=== PATIENT | male | born 1990 | race Caucasian/White ===

== ENCOUNTER 2018-07-07 09:00 | Emergency (ER) | payer OTHER, MEDICAID ==
--- NOTE | 2018-07-07 09:36 | EDPHY ---
General Time Seen by Provider: 07/07/18 09:32 Narrative: CLINICAL IMPRESSION: Autism, schizophrenia ASSESSMENT/PLAN: Patient is a 27-year-old male with a significant history of autism and schizophrenia who presents with increased anger and self-harm. Patient was placed on a mental incapacity hold secondary to being gravely disabled. Patient is afebrile and nontoxic-appearing, he is in no acute distress. CBC revealed no evidence of leukocytosis or anemia. Vital signs were reviewed and no findings to suggest bacterial illness. Metabolic panel with no metabolic abnormalities or acute kidney injury. Alcohol negative. Drug screen positive for cannabinoid and benzodiazepine. There were no clinical findings to suggest significant bodily harm, skull fracture, intracranial hemorrhage, cellulitis, intoxication, metabolic abnormality or other toxidrome. The patient's agitation and pacing did escalate, he was given 10 mg of Zyprexa orally with improvement of his symptoms. The patient was formally evaluated by behavioral health in the emergency department. After formal evaluation, the patient's father was contacted, we are still awaiting his phone call at this time. The plan will be for follow-up next week with his regular psychiatrist at [facility] pending the father is comfortable with caring for him at home. There were no indications for admission at this time. DIFFERENTIAL DX: Psychosis including but not limited to chronic psychosis, medication noncompliance, medication side effect, depression and illicit drug use. ED COURSE: 0925: Case discussed with Dr. Caruso, patient placed on [facility]. 1038: Patient remains calm. Laboratory studies were reviewed and unremarkable except for urinalysis which was positive for benzodiazepines and marijuana. Awaiting formal mental health evaluation. 1220: Patient with escalating agitation, will administer Zyprexa. 1458: Patient is much more calm. Formal evaluation has been completed, no indication for admission. Behavioral Health will contact father to discuss evaluation and follow-up plan. 1602: On repeat examination the patient is sleeping, easily arousable. I am unable to locate his brother to discuss this case. Case discussed with Dr. Torres who will resume care of this patient at this time. CHIEF COMPLAINT: Increased anger, self-harm HPI: Patient is a 27-year-old male with a long-standing psychiatric history as well as history of autism who presents to the emergency department with his father and brother secondary to escalating anger and physical self-harm. Father reports yesterday patient had an escalation of anger, destructive behavior at home as well as self-harm including punching himself in the face, bending and twisting his fingers and biting his arms. These behaviors are apparently a common occurrence however significantly escalated yesterday after noon and this morning. He is continuing to be destructive around the home punching things and destroying furniture. He punched himself in the face yesterday causing a black eye and is continuing to try in twist and bend his fingers in a natural positions. Father reports that he is followed regularly by Dr. Madrigal at [facility], he sees a therapist every other Tuesday and his last appointment was last Tuesday. Patient reportedly is constantly talking to himself which is his baseline however when he becomes angry he starts "nasty talk" including topics such as suicide and rape. Patient reports to me himself that he just feels angry, denies any other physical complaints. There been no recent illnesses. There was a recent addition of medication which includes Ritalin 2 weeks prior. Patient drinks a large amount of caffeinated coffee daily which has consequently given him episodes of severe hypertension and tachycardia, they are trying to wean him from coffee and using Ritalin as a substitute. No other changes in medications. Father discloses that the patient does use marijuana which actually seems to improve his anger and symptoms. He does not believe he uses other substances however does have access and has wondered if he is using other substances. PMH: Autism, schizophrenia, prediabetes Family History: Mother with significant history of multiple psychiatric diagnoses Social History: Marijuana use, denies other illicit drug use, cigarette smoking or alcohol abuse. REVIEW OF SYSTEMS: All other systems negative Constitutional: No fever, no chills, appetite change. Eyes: No discharge, vision change ENT: No sore throat, congestion, ear pain. Cardiovascular: No chest pain, no palpitations. Respiratory: No cough, no shortness of breath. Gastrointestinal: No abdominal pain, no vomiting, diarrhea. Genitourinary: No hematuria, dysuria, flank pain. Musculoskeletal: No back pain, joint swelling, joint pain, myalgias. Skin: No rashes, color change. Neurological: No headache, dizziness, weakness. PHYSICAL EXAM: General Appearance: Well-appearing, mildly agitated, pacing. Unkempt. Not toxic-appearing. HENT: Normocephalic. Faint ecchymosis noted to left inferior orbit. There is no orbital tenderness to palpation. Bilateral external ears are normal. Nares are clear, mucosa is pink. Oropharynx is clear, uvula is midline. The dentition is normal. Eyes: PERRLA, EOMI intact without evidence of entrapment.. Conjunctiva pink, no pallor or injection. Neck: Supple, nontender, no lymphadenopathy, no midline pain, FROM. Respiratory: There are no retractions, lungs are clear to auscultation. Cardiac: Regular rate and rhythm, no murmurs or gallops. Gastrointestinal: Abdomen is soft, nontender, bowel sounds normal, no masses/ hernia, no rigidity, guarding or focal peritoneal findings. Neurological: Alert and oriented x 3, CN 2-12 grossly intact, normal sensation and strength Skin: Warm, dry. Multiple scars and calluses on the dorsal aspect of distal forearms and hands consistent with biting history. No open wounds, no erythema. Areas are nontender. Musculoskeletal: Extremities are symmetrical, full range of motion, no tenderness, deformity, swelling, or erythema. Psychiatric: Patient is very flat, mumbling to himself constantly. Patient responds very slowly to questions. He is mildly agitated. MEDICAL DECISION MAKING: Patient was seen independently. Secondary supervising physician at time of evaluation was Dr. Caruso. Diagnosis: Autism, schizophrenia. Summary: See Assessment and Plan for summary of ED visit Clinical lab tests: ordered / reviewed. Decision to obtain medical records or history from someone other than the patient: Yes, father and brother Review / Summarize previous medical records: Yes Discussed patient with another provider: Yes, Dr. Caruso Patient Progress: Stable, discharge pending. - History Smoking Status: Never smoked - Objective Vital Signs: Initial Vital Signs Temperature (C) 37.1 C 07/07/18 09:04 Heart Rate 83 07/07/18 09:04 Respiratory Rate 18 07/07/18 09:04 Blood Pressure 165/89 H 07/07/18 09:04 O2 Sat (%) 93 07/07/18 09:04 O2 Delivery Mode Room Air Allergies/Adverse Reactions: No Known Allergies Allergy (Verified 07/07/18 09:04) Home Medications: Medication Instructions Recorded Lamictal 07/07/18 Metformin HCl 07/07/18 Prozac 20 MG (*) 80 mg 07/07/18 Ritalin 10mg (*) 07/07/18 Laboratory Results: Laboratory Results 07/07/18 09:45 07/07/18 09:45 07/07/18 07/07/18 07/07/18 09:45 09:45 09:45 WBC 6.35 10^3/uL 10^3/uL (3.80-9.50) RBC 5.20 10^6/uL 10^6/uL (4.40-6.38) Hgb 15.7 g/dL g/dL (13.7-17.5) Hct 44.4 % % (40.0-51.0) MCV 85.4 fL fL (81.5-99.8) MCH 30.2 pg pg (27.9-34.1) MCHC 35.4 g/dL g/dL (32.4-36.7) RDW 12.5 % % (11.5-15.2) Plt Count 420 10^3/uL H 10^3/uL (150-400) MPV 9.1 fL fL (8.7-11.7) Neut % (Auto) 61.1 % % (39.3-74.2) Lymph % (Auto) 25.7 % % (15.0-45.0) Harrison % (Auto) 8.8 % % (4.5-13.0) Eos % (Auto) 2.5 % % (0.6-7.6) Baso % (Auto) 1.4 % % (0.3-1.7) Nucleat RBC Rel Count 0.0 % % (0.0-0.2) Absolute Neuts (auto) 3.88 10^3/uL 10^3/uL (1.70-6.50) Absolute Lymphs (auto) 1.63 10^3/uL 10^3/uL (1.00-3.00) Absolute Monos (auto) 0.56 10^3/uL 10^3/uL (0.30-0.80) Absolute Eos (auto) 0.16 10^3/uL 10^3/uL (0.03-0.40) Absolute Basos (auto) 0.09 10^3/uL 10^3/uL (0.02-0.10) Absolute Nucleated RBC 0.00 10^3/uL 10^3/uL (0-0.01) Immature Gran % 0.5 % % (0.0-1.1) Immature Gran # 0.03 10^3/uL 10^3/uL (0.00-0.10) Sodium 139 mEq/L mEq/L (135-145) Potassium 4.5 mEq/L mEq/L (3.5-5.2) Chloride 103 mEq/L mEq/L (97-110) Carbon Dioxide 24 mEq/l mEq/l (22-31) Anion Gap 12 mEq/L mEq/L (6-14) BUN 14 mg/dL mg/dL (7-23) Creatinine 0.8 mg/dL mg/dL (0.7-1.3) Estimated GFR > 60 Glucose 122 mg/dL H mg/dL (70-100) Calcium 10.2 mg/dL mg/dL (8.5-10.4) Urine Opiates Screen NEGATIVE (NEGATIVE) Urine Barbiturates NEGATIVE (NEGATIVE) Ur Phencyclidine Scrn NEGATIVE (NEGATIVE) Ur Amphetamine Screen NEGATIVE (NEGATIVE) U Benzodiazepines Scrn NON-NEGATIVE H (NEGATIVE) Urine Cocaine Screen NEGATIVE (NEGATIVE) U Marijuana (THC) Screen NON-NEGATIVE H (NEGATIVE) Ethyl Alcohol < 10 mg/dL mg/dL (0-10) Medications Given: Discontinued Medications Olanzapine (Olanzapine) 10 mg PO ONCE ONE Stop: 07/07/18 12:22 Last Admin: 07/07/18 12:24 Dose: 10 mg Departure - Departure Disposition: Home, Routine, Self-Care Clinical Impression: Autism, Behavior disturbance Condition: Good Instructions: Additional Information Additional Instructions: DISCHARGE INSTRUCTIONS FROM YOUR PROVIDER Thank you for visiting our emergency department today. Please keep in mind that discharge from the emergency department does not mean that there is nothing wrong - it simply means that we have not identified an emergency condition that requires further evaluation or treatment in the hospital. You should always plan to follow up with primary care for re-evaluation of your condition in the next 2-3 days. It is imperative that you follow up with Dr. Madrigal for ongoing management of your psychiatric needs. Rest, healthy/regular sleep schedule, push fluids, healthy diet, regular exercise. Attempt to reduce stress. Pursue pleasurable, healthy activities. Surround yourself with loving, supportive, healthy friends and family. Avoid drugs and alcohol. Establish care with a primary care physician. See our list of resources. Return for increased or unmanageable anxiety, severe depression, thoughts or plans to hurt yourself or someone else, for chest pain, shortness of breath, dizziness, fainting, rapid or irregular heart beat, sweating, vomiting, abdominal pain, back pain, tremor, seizure, mental status changes, or for any other new, worsening or worrisome symptoms. People present with illnesses and injuries in different ways, and it is always possible that we have missed something. Again, thank you for choosing our emergency department. We hope that you feel better. Referrals: KENNETH HILL [Primary Care Provider] - 2-3 days, call for appt. Janes Madrigal MD [Medical Doctor] - 2-3 days without fail
[2018-07-07 10:01] LABS: PLATELET COUNT 420 10^3/uL (150-400)
[2018-07-07] MEDS ORDERED: OLANZapine 5 MG TAB PO ONE (12:21)
[2018-07-07 17:12] VITALS: BP 135/76
--- NOTE | 2018-07-07 17:32 | ASMTTLCEVL ---
TLC Evaluation - Basic Information Evaluation Start Date and 07/07/2018 12:30 PM Time Hospital Status Answers: Voluntary Patient statement Notes: I'm here because I got really angry today and was hitting myself Narrative Notes: PT is a 27 YO male, never with no children, hx of autism and schizophrenia presented to ed voluntarily with father due to escalating physical behavior such as hitting himself bending his fingers in contorted ways that looked like he might break them. Per pt's brother he has been talking to people who are not their and becoming increasingly agitated and destroying objects in the house. 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.9 (F29) Prior suicide attempts Notes: None Reported by father or pt Prior hospitalizations Notes: None Reported by father or pt Treatment Responses Notes: Reporeted Per father or pt History of violence Notes: None Reported by father or pt Therapist: Elva (seen every other Wed Psychiatrist: Rohan 1 a month Medications (name, dosage, route, freq uency) Notes: 80 mg prozac 300 Lamotrajgin Ritalin 20mg Allergies/Reaction Notes: None Reported by father or pt Sleep Notes: Good Appetite Notes: Good Medical/Surgical history Notes: None Reported by father or pt Substance use history (frequency, intensity, his tory, duration) Notes: THC ETOH No other drug use reproted Family composition Notes: Pt lives with father and brother Family psychiatric/substance abuse history Notes: Mother has schizophrenia, no substance abuse reported Developmental history Notes: Autism no add,adhd, or hx of abuse emotional, physical or sexual abuse. Abuse concerns Answers: None Marital status/children Notes: Un with no children Living situation Notes: PT lives with [place] and brother in [place] Sexual history/orientation Notes: Heterosexual, not active Peer support/family strengths Notes: PT has a supportive family and theraputic support but no friends due to hygiene issues Education level/history Notes: High School Education Work history Notes: Pt was employed at [employer] but was laid off Notes: None reported by pt or pt's father Legal Notes: None reported by pt or pt's father Jain/Spiritual Notes: None reported by pt or pt's father Leisure Notes: Pt used to scuba dive, play sports and jet ski Collateral Notes: Collateral data obtained from pt's father and brother Patient's strengths Answers: Motivated for Treatment (Please select at least TWO strengths): Supportive Family Willingness TLC Evaluation - Mental Status Exam Appearance: Answers: Appropriate Unclean Disheveled Eye Contact: Answers: Intermittent Mood: Answers: Elevated Affect: Answers: Appropriate Calm Flat Behavior: Answers: Appropriate Cooperative Impulsive Talkative Speech: Answers: Relevant Logical Coherent Rambling Thought Process: Answers: Organized Oriented Alert Insight: Answers: Fair Judgement: Answers: Fair Manic Signs/Symptoms Answers: Mood Swings Anxiety Signs/Symptoms Answers: Generalized Anxiety Obsessive/Compulsive Thoughts/Behavior Hallucinations: Answers: None Delusions: Answers: Mood-Congruent Non-Bizarre Current Stage of Change Answers: Contemplation Pt reported to have Answers: Yes suicidal/self-injuring ideation/behavior? Pt reported to be making Answers: Yes suicidal/self-injuring threats? Pt reported to have Answers: No aggression/assault ideation/behavior? Pt exhibits inability to Answers: No care for self/grave disability? Ideation/behavior is Answers: Yes chronic? Patient has a specific Answers: No plan? Pt has access to means to Answers: No execute the plan? Ideation involves Answers: No serious/lethal intent? History of Answers: Yes suicidal/self-injuring ideation, behavior, or threats? History of Answers: Yes aggressive/assaultive ideation, behavior, or threats? History of serious Answers: No physical harm to self/others while in treatment setting? TLC Evaluation - Suicide/Homicide Risk Suicide Risk Factors: Answers: < 20 or > 40 Years of Age Agitation Anhedonia Impulsivity Schizophrenia Single Homicide/violence risk Answers: None factors: Current Suicidal Answers: No Ideation? Current Suicidal Ideation Answers: No in the Past 48 Hours? Suicide Internal Answers: Absence of Psychosis Protective Factors: [place] with Stress Suicide External Answers: Positive Therapeutic Protective Factors: Relationships Social Support Ranking of patient's Answers: Low suicidal risk: Ranking of patient's Answers: Low homicidal risk: TLC Evaluation - Wrap-up AXIS I Diagnosis (include DSM-V and ICD-10 codes), must also be entered in [facility], which is the source of truth. Notes: Schizophrenia 295.90 (F20.9) Evaluation End Date and 07/07/2018 03:00 PM Time (HH:MM): Date Signed: 07/07/2018 05:29 PM Electronically Signed By:Kendell Santos
--- NOTE | 2018-07-07 17:36 | ASMTTCLDSP ---
TLC Discharge Disposition Disposition: Answers: Discharge Disposition Notes: Notes: In consultation with [facility] ED physician, Keanu Caruso MD, and Dai STOCK , both concurred that pt does not appear to meet 27-65 criteria requiring psychiatric hospitalization as pt does not appear to be an imminent risk of harm to self or others orgravely disabled due to a mental illness condition. Discharge Concerns/Recommendations: Notes: Pt's father and brother both concurred that the Pt acts out frequenty and when it becomes self harm they bring him to the emergency room. They both feel comfortable with the PT returning home now that he is calm. Date Signed: 07/07/2018 05:35 PM Electronically Signed By:Kendell Santos
== END 2018-07-07 17:12 | disposition home or self-care (01) ==
LOC: SUPCPDRO 09:00
DX: F84.0 Autistic disorder (principal); F20.89 Other schizophrenia; R73.03 Prediabetes; Z91.5 Personal history of self-harm
CPT/HCPCS: 80305; G0480